=== PATIENT | male | born 1970 ===

== ENCOUNTER 2021-12-27 08:46 | Outpatient (CLI) | payer OTHER ==
[2021-12-27] MEDS ORDERED: LIDOCAINE (4%) 40 MG/ML TOPICAL SOLN 50 ML BOTTLE TP ONE (09:33)
== END 2021-12-27 08:47 | disposition home or self-care (01) ==
LOC: WOUND 08:46
PROVIDERS: ATTEND Surgery
DX: L89.626 Pressure-induced deep tissue damage of left heel (principal); L97.422 Non-pressure chronic ulcer of left heel and midfoot with fat layer exposed; L84 Corns and callosities; I42.9 Cardiomyopathy, unspecified; I73.9 Peripheral vascular disease, unspecified; I69.852 Hemiplegia and hemiparesis following other cerebrovascular disease affecting left dominant side; F17.200 Nicotine dependence, unspecified, uncomplicated; F12.90 Cannabis use, unspecified, uncomplicated; Z86.718 Personal history of other venous thrombosis and embolism; Z95.818 Presence of other cardiac implants and grafts; Z79.899 Other long term (current) drug therapy
CPT/HCPCS: 11042; G0463; 99215

== ENCOUNTER 2022-01-03 08:15 | Outpatient (CLI) | payer OTHER ==
[2022-01-03] MEDS ORDERED: LIDOCAINE (4%) 40 MG/ML TOPICAL SOLN 50 ML BOTTLE TP SCH (08:30)
== END 2022-01-03 08:16 | disposition home or self-care (01) ==
LOC: WOUND 08:15
PROVIDERS: ATTEND Surgery
DX: L89.620 Pressure ulcer of left heel, unstageable (principal); L84 Corns and callosities; I42.9 Cardiomyopathy, unspecified; I73.9 Peripheral vascular disease, unspecified; I69.852 Hemiplegia and hemiparesis following other cerebrovascular disease affecting left dominant side; F11.90 Opioid use, unspecified, uncomplicated; F17.200 Nicotine dependence, unspecified, uncomplicated; Z86.718 Personal history of other venous thrombosis and embolism; Z95.818 Presence of other cardiac implants and grafts; Z99.89 Dependence on other enabling machines and devices; Z79.899 Other long term (current) drug therapy

== ENCOUNTER 2022-01-17 08:58 | Outpatient (CLI) | payer OTHER ==
[2022-01-17] MEDS ORDERED: LIDOCAINE (4%) 40 MG/ML TOPICAL SOLN 50 ML BOTTLE TP ONE (09:33)
== END 2022-01-17 08:59 | disposition home or self-care (01) ==
LOC: WOUND 08:58
PROVIDERS: ATTEND Surgery
DX: L89.620 Pressure ulcer of left heel, unstageable (principal); L84 Corns and callosities; I10 Essential (primary) hypertension; I42.9 Cardiomyopathy, unspecified; I73.9 Peripheral vascular disease, unspecified; I69.852 Hemiplegia and hemiparesis following other cerebrovascular disease affecting left dominant side; F12.90 Cannabis use, unspecified, uncomplicated; F17.200 Nicotine dependence, unspecified, uncomplicated; Z95.818 Presence of other cardiac implants and grafts; Z86.718 Personal history of other venous thrombosis and embolism; Z79.899 Other long term (current) drug therapy

== ENCOUNTER 2022-01-24 09:06 | Outpatient (CLI) | payer OTHER ==
[2022-01-24] MEDS ORDERED: LIDOCAINE (2%) 20 MG/1 ML VIAL 20 ML MDV INFILTRATI SCH (10:00)
[2022-01-24] MEDS ORDERED: LIDOCAINE (4%) 40 MG/ML TOPICAL SOLN 50 ML BOTTLE TP SCH (11:00)
== END 2022-01-24 09:07 | disposition home or self-care (01) ==
LOC: WOUND 09:06
PROVIDERS: ATTEND Surgery
DX: L89.623 Pressure ulcer of left heel, stage 3 (principal); L84 Corns and callosities; I10 Essential (primary) hypertension; I42.9 Cardiomyopathy, unspecified; I73.9 Peripheral vascular disease, unspecified; I69.852 Hemiplegia and hemiparesis following other cerebrovascular disease affecting left dominant side; F12.90 Cannabis use, unspecified, uncomplicated; F17.200 Nicotine dependence, unspecified, uncomplicated; Z95.818 Presence of other cardiac implants and grafts; Z86.718 Personal history of other venous thrombosis and embolism; Z79.899 Other long term (current) drug therapy
CPT/HCPCS: 11042; J3490